=== PATIENT | male | born 1975 | race Hispanic/Latino ===

== ENCOUNTER 2016-12-12 07:28 | Outpatient (CLI) | payer BC | END 2016-12-12 07:43 | disposition short-term general hospital (02) | LOC: AMB 07:28 | DX: M54.2 Cervicalgia (principal); M54.5 Low back pain; M25.511 Pain in right shoulder; R51 Headache; V49.88XA Car occupant (driver) (passenger) injured in other specified transport accidents, initial encounter; Y92.414 Local residential or business street as the place of occurrence of the external cause | CPT/HCPCS: A0425; A0427 ==

== ENCOUNTER 2018-04-14 12:20 | Emergency (ER) | payer OTHER ==
[~2018-04-14] VITALS: Ht 190.5 cm; Wt 99.8 kg
[2018-04-14 12:52] LABS: PLATELET COUNT 243 K/uL (142-355)
[2018-04-14 13:01] LABS: POTASSIUM 3.5 mmol/L (3.6-5.2); SODIUM 140 mmol/L (136-145)
[2018-04-14 13:40] VITALS: BP 114/67; TEMP 98.5
== END 2018-04-14 13:40 | disposition home or self-care (01) ==
LOC: ED 12:20
DX: F12.10 Cannabis abuse, uncomplicated (principal)
CPT/HCPCS: 36415; 80053; 80307; 81000; 82550; 82553; 84484; 85027; 93005; 99283

== ENCOUNTER 2018-07-21 08:32 | Emergency (ER) | payer OTHER ==
[~2018-07-21] VITALS: Ht 190.5 cm; Wt 100.7 kg
[2018-07-21 08:57] LABS: PLATELET COUNT 225 K/uL (142-355)
[2018-07-21 09:27] LABS: POTASSIUM 3.8 mmol/L (3.6-5.2); SODIUM 138 mmol/L (136-145)
[2018-07-21 09:57] VITALS: BP 122/81; TEMP 98
== END 2018-07-21 09:58 | disposition home or self-care (01) ==
LOC: ED 08:32
PROVIDERS: Emergency Medicine
DX: R07.89 Other chest pain (principal)
CPT/HCPCS: 36415; 80053; 82550; 82553; 84484; 85027; 93005; 99284

== ENCOUNTER 2018-07-23 18:44 | Emergency (ER) | payer OTHER ==
[~2018-07-23] VITALS: Ht 190.5 cm; Wt 104.3 kg
[2018-07-23 19:33] LABS: PLATELET COUNT 220 K/uL (142-355)
[2018-07-23 19:45] LABS: POTASSIUM 3.9 mmol/L (3.6-5.2); SODIUM 139 mmol/L (136-145)
[2018-07-23 20:42] VITALS: BP 143/83; TEMP 98.5
== END 2018-07-23 20:47 | disposition home or self-care (01) ==
LOC: ED 18:44
PROVIDERS: Emergency Medicine
DX: R07.89 Other chest pain (principal)
CPT/HCPCS: 36415; 80053; 82550; 82553; 84484; 85027; 85379; 93005; 99283

== ENCOUNTER 2019-01-08 13:00 | Outpatient (CLI) | payer BC ==
[2019-01-08 14:14] LABS: PLATELET COUNT 229 K/uL (142-355); SODIUM 140 mmol/L (136-145)
== END 2019-01-08 21:46 | disposition home or self-care (01) ==
LOC: RAD 13:00
PROVIDERS: Nurse Practitioner Family
DX: M54.12 Radiculopathy, cervical region (principal); R10.13 Epigastric pain; R07.89 Other chest pain
CPT/HCPCS: 36415; 80053; 82150; 82550; 82553; 83690; 84484; 85007; 85027; 86318; 93005

== ENCOUNTER 2020-02-12 08:14 | Outpatient (CLI) | payer OTHER | END 2020-02-12 22:20 | disposition home or self-care (01) | LOC: NM 08:14 | DX: R11.0 Nausea (principal) ==

== ENCOUNTER 2020-06-02 08:04 | Outpatient (CLI) | payer OTHER | END 2020-06-02 20:04 | disposition home or self-care (01) | LOC: US 08:04 | PROVIDERS: ATTEND Internal Medicine Gastroenterology | DX: R10.13 Epigastric pain (principal) ==

== ENCOUNTER 2020-07-20 10:05 | Day surgery (SDC) | payer OTHER ==
[2020-07-12 14:02] LABS: PLATELET COUNT 207 K/uL (142-355)
[2020-07-12 14:11] LABS: POTASSIUM 3.6 mmol/L (3.6-5.2)
[~2020-07-20] VITALS: Ht 30.5 cm; Wt 0.5 kg
== END 2020-07-20 12:30 | disposition home or self-care (01) ==
LOC: OR 10:05
PROVIDERS: ATTEND Internal Medicine Gastroenterology
PROC: 0DBP8ZZ Excision of Rectum, Via Natural or Artificial Opening Endoscopic (ICD-10-PCS; principal; 2020-07-20)
DX: K62.1 Rectal polyp (principal); K64.8 Other hemorrhoids; R10.30 Lower abdominal pain, unspecified; R63.4 Abnormal weight loss; R14.0 Abdominal distension (gaseous); Z20.828 Contact with and (suspected) exposure to other viral communicable diseases
CPT/HCPCS: 80053; 85027; 87635; J2704; U0003